=== PATIENT | female | born 1975 | race Caucasian/White ===

== ENCOUNTER → 2017-04-05 | Outpatient (CLI) | payer MEDICARE, OTHER | LOC: RAD 14:08 | DX: M54.9 Dorsalgia, unspecified (principal); M47.817 Spondylosis without myelopathy or radiculopathy, lumbosacral region | CPT/HCPCS: 72100 ==

== ENCOUNTER → 2021-08-10 | Outpatient (CLI) | payer MEDICARE, OTHER ==
[~2021-08-10] MED LIST: AUGMENTIN 875-1 EACH PO; CLEOCIN HCL300 MG PO; EXPECTORANT200 MG PO; MACROBID 100 M100 MG PO; Magic Mouth Wash PO; NORCO 5-325 TA1 EACH PO; PYRIDIUM100 MG PO; Viscous lidocaine2% TOP; ZITHROMAX250 MG PO
== END ==
LOC: EXRD 14:46
DX: J20.9 Acute bronchitis, unspecified (principal)
CPT/HCPCS: 71046

== ENCOUNTER → 2021-09-15 | Outpatient (CLI) | payer MEDICARE, OTHER | LOC: HEART 5 13:43 | DX: R07.9 Chest pain, unspecified (principal); R00.2 Palpitations ==

== ENCOUNTER → 2021-10-01 | Outpatient (CLI) | payer MEDICARE, OTHER | LOC: EXRD 10:43 | DX: J45.901 Unspecified asthma with (acute) exacerbation (principal); M25.561 Pain in right knee | CPT/HCPCS: 71046; 73564 ==

== ENCOUNTER → 2022-05-23 | Outpatient (CLI) | payer MEDICARE, OTHER | LOC: HEART 5 14:52 | DX: J45.40 Moderate persistent asthma, uncomplicated (principal) | CPT/HCPCS: 94060; 94729 ==